=== PATIENT | male | born 1995 | race Caucasian/White ===

== ENCOUNTER 2018-04-08 10:29 | Outpatient (CLI) | payer OTHER, SELFPAY ==
--- NOTE | 2018-04-08 10:45 | MERGE_ITS ---
*[facility]* *[facility]* [address] [place] [address] Date of study: 04/08/2018 Transthoracic Echocardiography M-mode, complete 2D, complete spectral Doppler, and color Doppler *STUDY CONCLUSIONS* Summary: 1. Left ventricle: The cavity size was normal. Wall thickness was increased in a pattern of mild LVH. Systolic function was normal. The estimated ejection fraction was 55-60%. Wall motion was normal; there were no regional wall motion abnormalities. Internal dimension, ES (PLAX): 3.9cm. 2. Aortic valve: Bicuspid; moderately thickened leaflets. Valve mobility was mildly restricted. Transvalvular velocity was increased. There was moderate stenosis. There was moderate to severe regurgitation. Valve area (VTI): 1.1cm^2. Valve area (Vmax): 1.1cm^2. Valve area (Vmean): 1.1cm^2. 3. Aortic root: The aortic root was normal in size. 4. Ascending aorta: The ascending aorta was at upper normal limits. 5. Right ventricle: The cavity size was normal. Wall thickness was normal. Systolic function was normal. *PATIENT PRESENTATION* Height: 177.8cm ((70in) ) S/D Pressure: 106 / 58 Weight: 106.6kg ((234.5lb) ) BSA: 2.33m^2 PERFORMING Unknown ORDERING Donnie Sheehan REFERRING Donnie Sheehan PERFORMING [facility] BUNDLE COLLECTOR RT Vanessa StinsonR)(CT)RUDY *PROCEDURE DATA* Procedure information: This study was interpreted by [facility]. Pertinent images and digital data are archived for permanent storage and are available for subsequent review. Study status: Routine. Transthoracic echocardiography. M-mode, complete 2D, complete spectral Doppler, and color Doppler. A Transthoracic Echocardiogram was performed. Scanning was performed from the parasternal, apical, subcostal, and suprasternal notch acoustic windows. Images were obtained using an [id number] cardiac ultrasound machine. Study completion: The patient tolerated the procedure well. *CARDIAC ANATOMY* Left ventricle: The cavity size was normal. Wall thickness was increased in a pattern of mild LVH. There was a false tendon within the ventricle. Systolic function was normal. The estimated ejection fraction was 55-60%. Wall motion was normal; there were no regional wall motion abnormalities. Aortic valve: Bicuspid; moderately thickened leaflets. Valve mobility was mildly restricted. Doppler: Transvalvular velocity was increased. There was moderate stenosis. There was moderate to severe regurgitation. VTI ratio of LVOT to aortic valve: 0.35. Valve area (VTI): 1.1cm^2. Indexed valve area (VTI): 0.5cm^2/m^2. Peak velocity ratio of LVOT to aortic valve: 0.34. Valve area (Vmax): 1.1cm^2. Indexed valve area (Vmax): 0.5cm^2/m^2. Mean velocity ratio of LVOT to aortic valve: 0.36. Valve area (Vmean): 1.1cm^2. Indexed valve area (Vmean): 0.5cm^2/m^2. Mean gradient (S): 47.8mm Hg. Peak gradient (S): 87.7mm Hg. Aorta: Aortic root: The aortic root was normal in size. Ascending aorta: The ascending aorta was at upper normal limits. Aortic arch: The aortic arch was at upper normal limits. Mitral valve: Structurally normal valve. Mobility was not restricted. Doppler: Transvalvular velocity was within the normal range. There was no evidence for stenosis. There was no significant regurgitation. Valve area by pressure half-time: 3.7cm^2. Indexed valve area by pressure half-time: 1.6cm^2/m^2. Peak gradient (D): 4.8mm Hg. Left atrium: The atrium was normal in size. Right ventricle: The cavity size was normal. Wall thickness was normal. Systolic function was normal. Pulmonic valve: Poorly visualized. Doppler: Transvalvular velocity was within the normal range. There was no evidence for stenosis. There was trivial regurgitation. Peak gradient (S): 3.8mm Hg. Tricuspid valve: Structurally normal valve. Doppler: Transvalvular velocity was within the normal range. There was no evidence for stenosis. There was trivial regurgitation. Pulmonary artery: Poorly visualized. Pulmonary systolic pressure was within the normal range. Right atrium: The atrium was normal in size. Pericardium: There was no pericardial effusion. Systemic veins: Inferior vena cava: Well visualized. The vessel was patent and normal in size. The respirophasic diameter changes were in the normal range (greater than or equal to 50%), consistent with normal central venous pressure. Baseline ECG: Normal sinus rhythm. Measurements Left ventricle Value Reference LV ID, ED, PLAX 5.9 cm 3.5 - 6.0 LV ID, ES, PLAX 3.9 cm 2.1 - 4.0 LV PW thickness, ED, PLAX 1.2 cm LV end-diastolic volume, 1-p A2C 140 ml LV ejection fraction, 1-p A2C 61 % LV end-diastolic volume, 1-p A4C 118 ml LV ejection fraction, 1-p A4C 56 % LV e', lateral 0.109 m/sec LV E/e', lateral 10 LV e', medial 0.075 m/sec LV E/e', medial 15 LV e', average 0.092 m/sec LV E/e', average 12 Ventricular septum Value Reference IVS thickness, ED, PLAX 1.2 cm LVOT Value Reference LVOT ID, A-P 2.0 cm LVOT area 3.2 cm^2 LVOT peak velocity, S 1.61 m/sec LVOT mean velocity, S 1.13 m/sec LVOT VTI, S 39.9 cm LVOT peak gradient, S 10.4 mm Hg LVOT mean gradient, S 5.8 mm Hg Stroke volume (SV), LVOT DP 126 ml Stroke index (SV/bsa), LVOT DP 54 ml/m^2 Aortic valve Value Reference Aortic valve peak velocity, S 4.7 m/sec Aortic valve mean velocity, S 3.17 m/sec Aortic valve VTI, S 115.4 cm Aortic mean gradient, S 47.8 mm Hg Aortic peak gradient, S 87.7 mm Hg VTI ratio, LVOT/AV 0.35 Aortic valve area, VTI 1.1 cm^2 Velocity ratio, peak, LVOT/AV 0.34 Aortic valve area, peak velocity 1.1 cm^2 Velocity ratio, mean, LVOT/AV 0.36 Aortic valve area, mean velocity 1.1 cm^2 Aortic valve area/bsa, mean velocity 0.5 cm^2/m^2 Aortic regurg deceleration 433 cm/s^2 Aortic regurg pressure half-time 311 ms Aorta Value Reference Aortic root ID, ED 2.4 cm Ascending aorta ID, A-P, S 3.2 cm Aortic arch ID 3.1 cm RVOT Value Reference RVOT VTI, S 20.0 cm Left atrium Value Reference LA ID, A-P, ES 3.6 cm LA ID/bsa, A-P 1.6 cm/m^2 <=2.2 LA area, ES, A4C 16.9 cm^2 8.8 - 23.4 LA area, ES, A2C 14 cm^2 LA volume/bsa, ES, 1-p A4C 20 ml/m^2 LA volume, ES, 2-p 44 ml LA volume/bsa, ES, 2-p 19 ml/m^2 LA/aortic root ratio 1.49 Mitral valve Value Reference Mitral E-wave peak velocity 1.1 m/sec Mitral A-wave peak velocity 0.58 m/sec Mitral deceleration time 207 ms 150 - 230 Mitral pressure half-time 60 ms Mitral peak gradient, D 4.8 mm Hg Mitral E/A ratio, peak 1.89 Mitral valve area, PHT, DP 3.7 cm^2 Pulmonary arteries Value Reference PA pressure, S, DP 18 mm Hg <=30 Tricuspid valve Value Reference Tricuspid regurg peak velocity 1.7 m/sec Tricuspid peak RV-RA gradient 11.9 mm Hg Right atrium Value Reference RA area, ES, A4C 14.3 cm^2 8.3 - 19.5 Systemic veins Value Reference Estimated CVP 10 mm Hg Right ventricle Value Reference RV pressure, S, DP 22 mm Hg <=30 Pulmonic valve Value Reference Pulmonic peak gradient, S 3.8 mm Hg Legend: (L) and (H) yi values outside specified reference range. I have personally reviewed the images and have reviewed and edited the reported findings. Electronically signed by Fariba Ruiz 04/09/2018 16:35
== END 2018-04-08 10:49 ==
PROVIDERS: PCP Nurse Practitioner; Visit Provider Student in an Organized Health Care Education/Training Program
DX: I51.7 Cardiomegaly; Q23.0 Congenital stenosis of aortic valve; I06.2 Rheumatic aortic stenosis with insufficiency
CPT/HCPCS: 93306

== ENCOUNTER 2019-05-05 08:24 | Outpatient (CLI) | payer OTHER, SELFPAY | END 2019-05-05 08:44 | PROVIDERS: PCP Nurse Practitioner; Visit Provider Internal Medicine Cardiovascular Disease | DX: R00.2 Palpitations (principal); I44.2 Atrioventricular block, complete; I49.1 Atrial premature depolarization | CPT/HCPCS: 93005; 93010; 93225 ==

== ENCOUNTER 2019-05-14 11:31 | Outpatient (CLI) | payer OTHER, SELFPAY ==
--- NOTE | 2019-05-15 08:05 | W.HOLTRPT ---
Holter Monitor Report Holter Monitor Note: This is a 48-hour Holter monitor ordered for the indication of palpitations. ?The predominant rhythm was normal sinus with an average heart rate of 80 bpm, minimum heart rate 56 bpm, maximum heart rate 116 bpm. ?There were no episodes of supraventricular tachycardia. There were rare (less than 1%) premature atrial contractions. ?There were no episodes of ventricular tachycardia. There were rare (less than 1%) ventricular ectopic beats and 2 couplets. ?There was one run lasting 10 beats of an accelerated idioventricular rhythm (97 bpm). ?There were no episodes of atrial fibrillation, no pauses greater than 3 seconds, and no high degree AV block. ?Patient triggered events were associated with normal sinus rhythm, sinus tachycardia, and PVCs. Date of service: 05/15/19 Time of Service: 08:05
== END 2019-05-14 11:51 ==
PROVIDERS: PCP Nurse Practitioner; Visit Provider Nurse Practitioner
DX: R00.2 Palpitations (principal); I44.2 Atrioventricular block, complete; I49.1 Atrial premature depolarization
CPT/HCPCS: 93226

== ENCOUNTER 2019-05-29 03:02 | Outpatient (CLI) | payer OTHER, SELFPAY ==
--- NOTE | 2019-05-29 10:38 | DI.US_ITS ---
APPROVED REPORT EXAM: Comprehensive 2D, Doppler, and color-flow Echocardiogram Patient Location: Out-Patient Phys Ther: Keena Boswell [facility] ([place]) Rhythm: NSR Indications: aortic insufficiency, bicuspid aortic valve. 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 There are false chords noted, there is focal calcification attached to a false chord. Borderline concentric left ventricular hypertrophy. There is normal LV segmental wall motion. LVEF is 55-60%. The left ventricular diastolic function is normal. Right Ventricle : The right ventricle is normal size. The right ventricular systolic function appears normal. Atria : The left atrium size is normal. The right atrium size is normal. Aortic Valve : Aortic valve is bicuspid. Aortic valve leaflets are moderately thickened. Moderate to severe aortic stenosis. Mean gradient is 53mmHg. JÚNIOR by VTI is 1.1cm2, JÚNIOR by Vmax 1.04cm2. Modereate to severe aortic regurgitation directed eccentrically posterior. [id number] Regurgitant jet appears to be affecting anterior MV leaflet. Mitral Valve : Mitral valve leaflets are thickened. No evidence of mitral valve stenosis. Mild to mod erate mitral regurgitation directed posteriorly. Tricuspid Valve : The tricuspid valve is normal in structure. Compared to prior echocardiogram dated 04/08/2018: The aortic valve mean gradient has increased slight ly. There is now mild to moderate mitral regurgitation. Wall motion Left Ventricle The left ventricle is top normal size. There are false chords noted, there is focal calcification att ached to a false chord. The left ventricular systolic function appears normal. Borderline concentric left ventricular hypertrophy. There is normal LV segmental wall motion. The left ventricular diastoli c function is normal. LVEF is 55-60%. Right Ventricle The right ventricle is normal size. The right ventricular systolic function appears normal. Atria The left atrium size is normal. The right atrium size is normal. Aortic Valve Aortic valve is bicuspid. Aortic valve leaflets are moderately thickened. Moderate to severe aortic s tenosis. Mean gradient is 53mmHg. JÚNIOR by VTI is 1.1cm2. Moderate to severe aortic regurgitation direc nahid eccentrically posterior. PHT 266msec Regurgitant jet appears to be affecting anterior MV leaflet. Mitral Valve Mitral valve leaflets are thickened. No evidence of mitral valve stenosis. Mild to moderate mitral re gurgitation directed posteriorly. Tricuspid Valve The tricuspid valve is normal in structure. Trivial tricuspid regurgitation. Pulmonic Valve Pulmonic valve is not well visualized. Great Vessels The aortic root is normal in size. The ascending aorta is normal in size (3.32cm). The aortic arch is not well visualized but there is suggestion of flow acceleration. IVC is mildly dilated, and collaps es >50% with inspiration. RVSP is estimated to be between 32 and 36 mmHg. Pericardium There is no pericardial effusion. 2D Dimensions IVSd 1.19 cm M: 0.6-1.2 LV EDV A2C 230.80 mL PWd 1.16 cm M: 0.6 - 1.2 LV EDV A4C 230.70 mL LVDd 5.79 cm M: 4.2 - 5.9 LA Volume Index A2C 16.89 mL/m2 LVDs 4.03 cm M: 2.5 - 4.0 LA Volume Index A4C 20.17 mL/m2 Aortic Root 2.65 cm M: 3.1 - 3.7 LA Volume Index Biplane 19.07 mL/m2 RA Area A4C 13.17 cm2 LA Area A4C 16.70 cm2 LVOT 2.00 cm (M/F) 1.5-2.5 LA Area A2C 14.80 cm2 Ascending Aorta 3.32 cm M: 2.6 - 3.4 EF AP4 54.36 % LVEF (Teich) 57.03 % EF AP2 64.56 % LVEF (Murphy's) 60.82 % M: 52 - 72 EF BP 60.82 % LV Volume 172.29 mL M: 62 - 150 LV Volume Index 77.26 mL/m2 M: 34 - 74 FS 30.38 % LV Diastology E/A Ratio 2.7 MED E' 0.09 (>0.07 m/s) LV E/e MED 13.50 (<14) LAT E' 0.11 (>0.1 m/s) LV E/e LAT 10.54 (<14) Pulm Vein s 0.54 m/s PV S/D Ratio 0.49 Pulm Vein d 1.11 m/s Pulm Vein a 0.40 m/s A-A Duration 162.99 msec Aortic Valve LVOT Area 3.14 cm2 LVOT Peak Volodymyr. 1.63 m/s LVOT Mean Volodymyr. 1.18 m/s LVOT Peak Gr. 10.62 mmHg JÚNIOR Vmax Index 0.46 cm2/m2 LVOT Mean Gr. 6.28 mmHg LVOT VTI 0.38 m JÚNIOR Mean Volodymyr. Index 0.49 cm2/m2 AoV Peak Volodymyr. 4.93 (0.5-1.3 m/s) AoV Mean Volodymyr. 3.41 m/s AI PHT 266.38 msec AO Peak GR. 97.31 mmHg AO Mean GR. 53.19 (<5 mmHg) AO VTI 1.11 (0.18-0.25 m) AV Regurg Decel. 918.56 msec JÚNIOR (VTI) 1.09 (2.5-4.5 cm2) JÚNIOR (VTI) Index 0.49 cm/m2 Mitral Valve MV E Max Volodymyr. 1.20 (0.4-1.3 m/s) MV A Velocity 0.45 (0.4-1.3 m/s) E/A Ratio 2.68 MV Decel. Time 203.92 (160-240 msec) MV PHT 59.14 msec MVA PHT 3.72 cm2 Pulmonary Valve PV Peak Velocity 1.13 (0.5-1.5 m/s) Tricuspid Valve TR P. Velocity 2.82 m/s TV Regurg Vmax 2.82 m/s TR P. Gradient 31.79 mmHg
== END 2019-05-29 03:22 ==
PROVIDERS: PCP Nurse Practitioner; Visit Provider Internal Medicine Cardiovascular Disease
DX: Q23.1 Congenital insufficiency of aortic valve (principal); I06.2 Rheumatic aortic stenosis with insufficiency; R00.2 Palpitations
CPT/HCPCS: 93306

== ENCOUNTER 2019-06-18 01:36 | Outpatient (CLI) | payer OTHER, SELFPAY ==
--- NOTE | 2019-06-18 15:25 | DI.CT_ITS ---
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 Axial CT angiography was performed with multislice acquisition and multiplanar and/or 3D reconstruc tions. COMPARISON: No exams were available for comparison FINDINGS: Images obtained through the upper abdomen show hepatic steatosis. Unremarkable appearance of visuali zed portions of spleen, kidneys, adrenals and pancreas. No biliary dilatation. No mediastinal or hilar adenopathy seen. Tracheolaryngeal structures appear intact. Lungs are clear . Thoracic aorta and major branches appear intact. No evidence of pulmonary embolic disease. No ao rtic aneurysm. No evidence of coarctation. Lungs are clear. No pleural effusion. IMPRESSION: Negative CTA of the chest.
[2019-06-18] MEDS: Omnipaque 350 MG/ML 100 ML BTL IJ ×2 (15:38→15:47)
== END 2019-06-18 01:56 ==
PROVIDERS: PCP Nurse Practitioner; Visit Provider Internal Medicine Cardiovascular Disease
DX: Q23.1 Congenital insufficiency of aortic valve (principal); K76.0 Fatty (change of) liver, not elsewhere classified
CPT/HCPCS: 71275; J3490

== ENCOUNTER 2019-06-18 01:46 | Outpatient (CLI) | payer OTHER, SELFPAY ==
--- NOTE | 2019-07-10 10:20 | W.ZIOMONITOR ---
Date of service: 07/10/19 Time of Service: 10:20 ZIO Patch School Administrator Note: This is a 2-week ZIO patch ordered for the indication of palpitations. ?The patch was worn for a total of 3 days and 18 hours. ?The patient was in normal sinus rhythm for the majority of the recording. ?There were rare (less than 1%) supraventricular ectopic beats. There were no episodes of supraventricular tachycardia ?There were no episodes of ventricular tachycardia and rare (less than 1%) single ventricular ectopic beats. ?There were no pauses greater than 3 seconds, episodes of atrial fibrillation, or episodes of high degree heart block. ?Patient triggered events were associated with sinus rhythm and a single ventricular ectopic beat.
== END 2019-06-18 02:06 ==
PROVIDERS: PCP Nurse Practitioner; Visit Provider Internal Medicine Cardiovascular Disease
DX: R00.2 Palpitations (principal); I49.3 Ventricular premature depolarization
CPT/HCPCS: 0296T

== ENCOUNTER 2020-02-12 00:22 | Outpatient (CLI) | payer BC, OTHER, SELFPAY ==
--- NOTE | 2020-02-12 08:00 | DI.US_ITS ---
APPROVED REPORT EXAM: Comprehensive 2D, Doppler, and color-flow Echocardiogram Patient Location: Out-Patient Goldbeater: Isabella Woodard RDCS ([place]) Indications: Bicuspid Aortic Valve Other Information Study Quality: Good Conclusion Left Ventricle : Left ventricle is borderline dilated. The left ventricular systolic function is norm al. The left ventricular ejection fraction is within the normal range. There is normal left ventricul ar wall thickness. There is normal LV segmental wall motion. The left ventricular diastolic function is normal. LVEF is 56%. Right Ventricle : The right ventricle is normal size. The right ventricular systolic function is norm al. Atria : The left atrium size is normal. The right atrium size is normal. Aortic Valve : Aortic valve is bicuspid. Moderate aortic regurgitation. Moderate to severe aortic st enosis. Peak aortic valve gradient is 63.3mmHg. Highest mean aortic valve gradient is 35mmHg. Calcula nahid JÚNIOR by the continuity equation is 1.4cm2. Great Vessels : The aortic root is normal in size. The ascending aorta is normal in size. Aortic arch is normal in caliber. IVC is normal in size and collapses >50% with inspiration. Compared to study from 05/29/2019, there is no significant change. Patient's aortic stenosis remains moderate to severe. LV size is on the upper limits of normal. Wall motion Left Ventricle Left ventricle is borderline dilated. The left ventricular systolic function is normal. The left vent ricular ejection fraction is within the normal range. There is normal left ventricular wall thickness . There is normal LV segmental wall motion. The left ventricular diastolic function is normal. There is no ventricular septal defect visualized. LVEF is 56%. Right Ventricle The right ventricle is normal size. The right ventricular systolic function is normal. Atria The left atrium size is normal. The right atrium size is normal. The interatrial septum is intact wit h no evidence for an atrial septal defect. Aortic Valve Aortic valve is bicuspid. Moderate to severe aortic stenosis. Peak aortic valve gradient is 63.3mmHg. Highest mean aortic valve gradient is 35mmHg. Calculated JÚNIOR by the continuity equation is 1.4cm2. M oderate aortic regurgitation. Mitral Valve The mitral valve is normal in structure. No evidence of mitral valve stenosis. Trace to mild mitral r egurgitation. Tricuspid Valve The tricuspid valve is normal in structure. There is no tricuspid valve stenosis. Trace tricuspid reg urgitation. Unable to assess PA pressure. Pulmonic Valve The pulmonary valve is normal in structure. There is no pulmonic valvular stenosis. There is no pulmo melani valvular regurgitation. Great Vessels The aortic root is normal in size. The ascending aorta is normal in size. Aortic arch is normal in ca liber. IVC is normal in size and collapses >50% with inspiration. Pericardium There is no pericardial effusion. 2D Dimensions IVSD d PLAX 1.15 cm M: 0.6-1.2 LV Vol A2C d MOD 232.1 mL LVPW d PLAX 1.11 cm M: 0.6 - 1.2 LV Vol A4C d MOD 219.7 mL LVID d PLAX 5.85 cm M: 4.2 - 5.8 LA vol/ BSA A2C s A-L 20.1 mL/m2 LVDs 3.90 cm M: 2.5 - 4.0 LA vol/ BSA A4C s A-L 19.6 mL/m2 Ao Root d 2.57 cm M: 3.1 - 3.7 LA Vol/ BSA Biplane s A-L 21.2 mL/m2 RA Area A4C 15.89 cm2 LA Area A4C s MOD 16.88 cm2 RA Vol/ BSA A4C s A-L 20.7 mL/m2 LA Area A2C s MOD 15.97 cm2 Ao Asc Diam d 3.38 cm M: 2.6 - 3.4 LV EF A4C MOD 55.7 % LV EF Teichholz 60.1 % LV EF A2C MOD 56.5 % LVEF (Murphy's) 55.70 % M: 52 - 72 LV EF Biplane MOD 55.7 % LV Volume 165.37 mL M: 62 - 150 SV 127.28 mL LV Volume Index 74.15 mL/m2 M: 34 - 74 SV Index 56.94 mL/m2 LV Vol Biplane MOD 228.5 mL FS 32.50 % M-Mode TAPSE 2.71 cm (M/F) >1.7 LV Diastology MV E' medial 0.140 (>0.07 m/s) E/A Ratio 2.5 LV E/e MED 7.90 (<14) MV E Vmax 1.11 (0.4-1.3 m/s) MV E' lateral 0.142 (>0.1 m/s) MV A Vmax 0.45 (0.4-1.3 m/s) LV E/e LAT 7.80 (<14) MV E/A Ratio 2.39 MV E/E' medial 7.92 MV E/E' lateral 7.83 Aortic Valve LVOT Area 3.92 cm2 AoV Area Vmax 1.40 cm2 LVOT Vmax 1.78 m/s AoV Area/ BSA (Vmax) 0.60 cm2/m2 LVOT Mean Volodymyr. 1.35 m/s JÚNIOR Mean Volodymyr. 1.92 cm2 LVOT Peak Grad 12.7 mmHg JÚNIOR Mean Volodymyr. Index 0.86 cm2/m2 LVOT Mean Grad 8.0 mmHg AR DT 1211 msec LVOT VTI 0.418 m AR PHT 351 msec LVOT Diam s 2.00 cm AoV Vmax 3.98 m/s Velocity Ratio 0.44 AoV Mean Volodymyr. 2.75 m/s AoV Peak Grad 63.3 mmHg LVOT SV 163.92 mL AoV Mean Grad 35.6 mmHg AoV VTI 0.969 m AoV Area VTI 1.69 cm2 AoV Area/ BSA (VTI) 0.76 cm/m2 Mitral Valve MV DT 226 (160-240 msec) MV PHT 66 msec MV Area PHT 3.36 cm2 Pulmonary Valve PV Vmax 1.03 (0.5-1.5 m/s) RVOT Peak Gr. 2.52 mmHg PV Peak Grad 4.2 mmHg RVOT Mean Gr. 1.35 mmHg PV Mean Grad 2.1 mmHg RVOT VTI 0.161 m PV VTI 0.207 m RVOT Vmax 0.79 m/s
== END 2020-02-12 00:42 ==
PROVIDERS: PCP Nurse Practitioner; Visit Provider Internal Medicine Cardiovascular Disease
DX: Q23.1 Congenital insufficiency of aortic valve (principal); Q23.0 Congenital stenosis of aortic valve
CPT/HCPCS: 93306

== ENCOUNTER 2020-08-24 01:21 | Outpatient (CLI) | payer OTHER, SELFPAY ==
--- NOTE | 2020-08-24 13:32 | DI.US_ITS ---
APPROVED REPORT EXAM: Comprehensive 2D, Doppler, and color-flow Echocardiogram Patient Location: Out-Patient A&P Mechanic: Isabella Woodard RDCS ([facility]) Indications: Bicuspid aortic valve Other Information Study Quality: Adequate Conclusion Left Ventricle : The left ventricle is normal size. The left ventricular systolic function is normal. The left ventricular ejection fraction is within the normal range. There is normal left ventricular wall thickness. There is normal LV segmental wall motion. The left ventricular diastolic function is normal. LVEF is 60%. Right Ventricle : The right ventricle is normal size. The right ventricular systolic function is norm al. The RVSP is 22.8mmHg. Atria : The left atrium size is normal. The right atrium size is normal. Aortic Valve : Aortic valve is bicuspid. Moderate aortic regurgitation. Peak aortic valve gradient is 51.6mmHg. Highest mean aortic valve gradient is 30.5mmHg. Moderate stenosis. Great Vessels : The aortic root is normal in size. Ascending aorta is normal in caliber. Aortic arch is normal in caliber. IVC is normal in size and collapses >50% with inspiration. Compared to study from 02/12/2020, there is no significant change. Mean gradient remains in the moder ate range. Wall motion Left Ventricle The left ventricle is normal size. The left ventricular systolic function is normal. The left ventric ular ejection fraction is within the normal range. There is normal left ventricular wall thickness. T here is normal LV segmental wall motion. The left ventricular diastolic function is normal. There is no ventricular septal defect visualized. LVEF is 60%. Right Ventricle The right ventricle is normal size. The right ventricular systolic function is normal. The RVSP is 22 .8mmHg. Atria The left atrium size is normal. The right atrium size is normal. The interatrial septum is intact wit h no evidence for an atrial septal defect. Aortic Valve Aortic valve is bicuspid. Peak aortic valve gradient is 51.6mmHg. Highest mean aortic valve gradient is 30.5mmHg. Moderate stenosis. Moderate aortic regurgitation. Mitral Valve The mitral valve is normal in structure. No evidence of mitral valve stenosis. Trace mitral regurgita tion. Tricuspid Valve The tricuspid valve is normal in structure. There is no tricuspid valve stenosis. Trace tricuspid reg urgitation. Pulmonic Valve The pulmonary valve is normal in structure. There is no pulmonic valvular stenosis. Trace pulmonic re gurgitation. Great Vessels The aortic root is normal in size. Ascending aorta is normal in caliber. Aortic arch is normal in hosea iber. IVC is normal in size and collapses >50% with inspiration. Pericardium There is no pericardial effusion. 2D Dimensions IVSD d PLAX 1.12 cm M: 0.6-1.2 LV Vol A2C d MOD 182.0 mL LVPW d PLAX 1.13 cm M: 0.6 - 1.2 LV Vol A4C d MOD 251.7 mL LVID d PLAX 5.53 cm M: 4.2 - 5.8 LA vol/ BSA A4C s A-L 25.2 mL/m2 LVDs 3.50 cm M: 2.5 - 4.0 LA Area A4C s MOD 19.06 cm2 Ao Root d 2.41 cm M: 3.1 - 3.7 LV EF A4C MOD 60.5 % RA Area A4C 14.04 cm2 LV EF A2C MOD 60.5 % RA Vol/ BSA A4C s A-L 16.5 mL/m2 LV EF Biplane MOD 59.8 % Ao Asc Diam d 3.52 cm M: 2.6 - 3.4 SV 131.93 mL LV EF Teichholz 64.8 % SV Index 58.49 mL/m2 LVEF (Murphy's) 59.79 % M: 52 - 72 LV Volume 159.25 mL M: 62 - 150 LV Volume Index 70.77 mL/m2 M: 34 - 74 LV Vol Biplane MOD 220.7 mL FS 35.85 % M-Mode TAPSE 2.45 cm (M/F) >1.7 LV Diastology MV E' medial 0.103 (>0.07 m/s) E/A Ratio 1.9 LV E/e MED 9.35 (<14) MV E Vmax 0.96 (0.4-1.3 m/s) MV E' lateral 0.103 (>0.1 m/s) MV A Vmax 0.50 (0.4-1.3 m/s) LV E/e LAT 9.35 (<14) MV E/A Ratio 1.79 MV E/E' medial 9.38 MV E/E' lateral 9.38 Aortic Valve LVOT Area 3.15 cm2 AoV Area Vmax 1.90 cm2 LVOT Vmax 2.28 m/s AoV Area/ BSA (Vmax) 0.89 cm2/m2 LVOT Mean Volodymyr. 1.44 m/s JÚNIOR Mean Volodymyr. 1.72 cm2 LVOT Peak Grad 20.8 mmHg JÚNIOR Mean Volodymyr. Index 0.76 cm2/m2 LVOT Mean Grad 9.9 mmHg AR DT 1970 msec LVOT VTI 0.425 m AR PHT 571 msec LVOT Diam s 2.00 cm AoV Vmax 3.66 m/s Velocity Ratio 0.62 AoV Mean Volodymyr. 2.64 m/s AoV Peak Grad 51.6 mmHg LVOT SV 133.99 mL AoV Mean Grad 30.5 mmHg AoV VTI 0.857 m AoV Area VTI 1.56 cm2 AoV Area/ BSA (VTI) 0.69 cm/m2 Mitral Valve MV DT 246 (160-240 msec) MV PHT 71 msec MV Area PHT 3.08 cm2 MV VTI 0.347 m MV Area VTI 3.86 (4.0-6.0 cm2) Pulmonary Valve PV Vmax 1.14 (0.5-1.5 m/s) RVOT Peak Gr. 2.94 mmHg PV Peak Grad 5.2 mmHg RVOT Mean Gr. 1.40 mmHg PV Mean Grad 2.6 mmHg RVOT VTI 0.201 m PV VTI 0.238 m RVOT Vmax 0.86 m/s Tricuspid Valve TR Peak Grad 19.7 mmHg TR Vmax 2.22 m/s RA Pressure 3.00 mmHg RVSP (TR) 22.8 mmHg
== END 2020-08-24 01:22 | disposition home or self-care (01) ==
LOC: DI 01:22
PROVIDERS: PCP Nurse Practitioner; Visit Provider Internal Medicine Cardiovascular Disease
DX: Q23.1 Congenital insufficiency of aortic valve (principal)
CPT/HCPCS: 93306

== ENCOUNTER 2021-09-01 02:13 | Outpatient (CLI) | payer BC, SELFPAY ==
--- NOTE | 2021-09-01 10:30 | DI.US_ITS ---
APPROVED REPORT EXAM: Comprehensive 2D, Doppler, and color-flow Echocardiogram Patient Location: Out-Patient Drafter Geological: Isabella Woodard RDCS (AE) Indications: Mitral Regurgitation,Chests pain, Bicuspid aortic valve Other Information Study Quality: Good Conclusion Normal left ventricular wall thickness and chamber size. Estimated ejection fraction is 60%. Wall m otion is normal Normal right ventricular size and systolic function Both atria are normal in size The aortic valve is bicuspid and sclerotic. There is moderate aortic regurgitation. There is modera te aortic stenosis. Peak gradient is 46, mean 27 mmHg. Calculated aortic valve area is 1.48 cm?? Mildly dilated ascending aorta measuring 3.58 cm Wall motion Left Ventricle The left ventricle is normal size. The left ventricular systolic function is normal. The left ventric ular ejection fraction is within the normal range. There is normal left ventricular wall thickness. T here is normal LV segmental wall motion. There is no ventricular septal defect visualized. LVEF is 60 %. Right Ventricle The right ventricle is normal size. The right ventricular systolic function is normal. Atria The left atrium size is normal. The right atrium size is normal. The interatrial septum is intact wit h no evidence for an atrial septal defect. Aortic Valve Aortic valve is bicuspid. Moderate aortic stenosis. Peak aortic valve gradient is 46.2mmHg. Highest m abbey aortic valve gradient is 27.6mmHg. Calculated JÚNIOR by the continuity equation is 1.48cm2. Moderate aortic regurgitation. Mitral Valve The mitral valve is normal in structure. No evidence of mitral valve stenosis. Trace mitral regurgita tion. Tricuspid Valve The tricuspid valve is normal in structure. There is no tricuspid valve stenosis. Trace to mild tricu spid regurgitation. Pulmonic Valve The pulmonary valve is normal in structure. There is no pulmonic valvular stenosis. There is no pulmo melani valvular regurgitation. Great Vessels The aortic root is normal in size. The ascending aorta is mildly dilated. Aortic arch is normal in ca liber. IVC is normal in size and collapses >50% with inspiration. Pericardium There is no pericardial effusion. 2D Dimensions IVSD d PLAX 1.14 cm M: 0.6-1.2 LV Vol A2C d MOD 210.2 mL LVPW d PLAX 1.13 cm M: 0.6 - 1.2 LV Vol A4C d MOD 232.6 mL LVID d PLAX 5.57 cm M: 4.2 - 5.8 LA vol/ BSA A2C s A-L 21.6 mL/m2 LVDs 3.75 cm M: 2.5 - 4.0 LA vol/ BSA A4C s A-L 21.4 mL/m2 Ao Root d 2.45 cm M: 3.1 - 3.7 LA Vol/ BSA Biplane s A-L 23.7 mL/m2 RA Area A4C 14.86 cm2 LA Area A4C s MOD 17.48 cm2 RA Vol/ BSA A4C s A-L 16.8 mL/m2 LA Area A2C s MOD 15.97 cm2 Ao Asc Diam d 3.58 cm M: 2.6 - 3.4 LV EF A4C MOD 60.8 % LV EF Teichholz 59.8 % LV EF A2C MOD 60.7 % LVEF (Murphy's) 61.28 % M: 52 - 72 LV EF Biplane MOD 61.3 % LV Volume 161.90 mL M: 62 - 150 SV 137.47 mL LV Volume Index 71.95 mL/m2 M: 34 - 74 SV Index 60.95 mL/m2 LV Vol Biplane MOD 224.3 mL FS 32.15 % M-Mode TAPSE 2.74 cm (M/F) >1.7 LV Diastology MV E' medial 0.122 (>0.07 m/s) E/A Ratio 1.5 LV E/e MED 7.85 (<14) MV E Vmax 0.96 (0.4-1.3 m/s) MV E' lateral 0.126 (>0.1 m/s) MV A Vmax 0.65 (0.4-1.3 m/s) LV E/e LAT 7.60 (<14) MV E/A Ratio 1.42 MV E/E' medial 7.85 MV E/E' lateral 7.62 Aortic Valve LVOT Area 3.39 cm2 AoV Area Vmax 1.48 cm2 LVOT Vmax 1.48 m/s AoV Area/ BSA (Vmax) 0.66 cm2/m2 LVOT Mean Volodymyr. 1.20 m/s JÚNIOR Mean Volodymyr. 1.65 cm2 LVOT Peak Grad 8.8 mmHg JÚNIOR Mean Volodymyr. Index 0.73 cm2/m2 LVOT Mean Grad 6.1 mmHg AR DT 1353 msec LVOT VTI 0.343 m AR PHT 392 msec LVOT Diam s 2.05 cm AoV Vmax 3.40 m/s Velocity Ratio 0.43 AoV Mean Volodymyr. 2.47 m/s AoV Peak Grad 46.2 mmHg LVOT SV 116.43 mL AoV Mean Grad 27.6 mmHg AoV VTI 0.726 m AoV Area VTI 1.60 cm2 AoV Area/ BSA (VTI) 0.71 cm/m2 Mitral Valve MV DT 225 (160-240 msec) MV PHT 65 msec MV Area PHT 3.37 cm2 MV VTI 0.364 m MV Area VTI 3.20 (4.0-6.0 cm2) Pulmonary Valve PV Vmax 1.14 (0.5-1.5 m/s) RVOT Peak Gr. 2.28 mmHg PV Peak Grad 5.2 mmHg RVOT Mean Gr. 1.05 mmHg PV Mean Grad 2.5 mmHg RVOT VTI 0.164 m PV VTI 0.237 m RVOT Vmax 0.75 m/s
== END 2021-09-01 02:33 ==
PROVIDERS: PCP Nurse Practitioner; Visit Provider Internal Medicine Cardiovascular Disease
DX: R07.89 Other chest pain (principal); I34.0 Nonrheumatic mitral (valve) insufficiency
CPT/HCPCS: 93306